=== PATIENT | male | born 1985 | race Caucasian/White ===

== ENCOUNTER 2023-04-23 00:13 | Emergency (ER) | payer SELFPAY ==
[~2023-04-23] VITALS: Ht 180.3 cm; Wt 117.9 kg
[2023-04-23 00:17] VITALS: BP 112/61; PULSE 69; RESP 16; TEMP 97.4; O2SAT 98
[2023-04-23 00:32] VITALS: BP 112/61; PULSE 69; RESP 16; TEMP 97.4; O2SAT 98
== END 2023-04-23 00:32 ==
LOC: MED 00:13
DX: Z02.89 Encounter for other administrative examinations (principal); V89.2XXA Person injured in unspecified motor-vehicle accident, traffic, initial encounter; Y93.89 Activity, other specified; Y92.410 Unspecified street and highway as the place of occurrence of the external cause; Y99.8 Other external cause status
CPT/HCPCS: 99283